=== PATIENT | female | born 1960 | race African-American/Black ===

== ENCOUNTER 2024-05-30 18:41 | Emergency (ER) | payer OTHER ==
[~2024-05-30] VITALS: Ht 172.7 cm; Wt 84.0 kg
[~2024-05-30 18:41] MED LIST: LORA-655; LORA10TA6 PO; [UNRECOGNIZED DRUG - OTHER]
--- NOTE | 2024-05-30 18:59 | ECG ---
[facility] Test Date: 2024-05-30 Test Time: 18:55:30 Pat Name: GAMALIEL SCHULTZ Department: er Room: Gender: F Hardwood Finisher: ana : 1960 Requested By: EMERGENCY EMERGENCY Order Number: [id number] Reading MD: Measurements Intervals [place] Rate: 115 P: 64 RI: 138 QRS: 44 QRSD: 97 T: 6 QT: 349 QTc: 483 Interpretive Statements Sinus tachycardia Please click the below link to view image of tracing.
[2024-05-30] MEDS: predniSONE 20 MG TAB PO ONE (19:13)
[2024-05-30] MEDS: IPRATROPIUM BROM 0.5 MG/2.5ML INH SOL HHN ONE (19:15)
[2024-05-30] MEDS: ALBUTEROL SULF 2.5 MG/0.5ML(0.5%) NEB SOLN HHN ONE (19:16)
[2024-05-30 19:38] LABS: COVID19 ANTIGEN SOFIA FIA NEGATIVE (NEGATIVE); Rapid Influenza A Negative (Negative); Rapid Influenza B Negative (Negative)
[2024-05-30 19:38] LABS: Basophils # (auto) 0 10 ^3/uL (0-0.2); Basophils % (auto) 0.4 % (0.0-2.0); Eosinophils # (auto) 0 10 ^3/uL (0-0.8); Eosinophils % (auto) 0.3 % (0.0-7.0); Hematocrit 36.6 % (36.0-46.0); Hemoglobin 12.1 g/dL (12.2-16.2); Lymphocytes # (auto) 0.9 10 ^3/uL (0.4-5.4); Lymphocytes % (auto) 17.8 % (10.0-50.0); Mean Corpuscular Hemoglobin 28.1 pg (28.0-32.0); Mean Corpuscular Hgb Conc. 32.9 g/dL (32.0-36.0); Mean Corpuscular Volume 85.3 fL (80.0-100.0); Monocytes # (auto) 0.4 10 ^3/uL (0-1.3); Monocytes % (auto) 8.6 % (0.0-12.0); Neutrophils # (auto) 3.6 10 ^3/uL (1.6-8.6); Neutrophils % (auto) 72.9 % (37.0-80.0); Nucleated Red Blood Cells % 0.2 %; Platelet Count (auto) 126 10^3/uL (140-450); Red Blood Cells 4.29 10^6/uL (4.0-5.20); Red Cell Distribution Width 14.8 % (11.8-14.3); White Blood Cell 4.9 10^3/uL (4.4-10.8)
--- NOTE | 2024-05-30 19:44 | DVH ---
CHEST RADIOGRAPH Indication: SOB Technique: Single frontal view of the chest was obtained COMPARISON: None FINDINGS: Lines and Tubes: None Lungs: Mild opacity noted at the left lung base consistent with subsegmental atelectasis/consolidatio n. Mild subsegmental atelectasis in right mid lung. Pleura: No effusion. No pneumothorax. Cardiomediastinal contours: Unremarkable IMPRESSION: Mild opacity at left lung base, may represent pneumonia.
[2024-05-30 19:57] LABS: Alanine Aminotransferase 28 U/L (7-40); Albumin 4.6 g/dL (3.2-4.8); Alkaline Phosphatase 113 U/L (46-116); Anion Gap 11 (5-15); BUN/Creatinine Ratio 12.5 (10.0-20.0); Blood Urea Nitrogen 18 mg/dL (9-23); Carbon Dioxide 25 mmol/L (20-31); Chloride 104 mmol/L (98-107); Potassium 3.6 mmol/L (3.5-5.1); Sodium 140 mmol/L (136-145)
[2024-05-30 19:58] LABS: Total Protein 6.9 g/dL (5.7-8.2)
[2024-05-30 19:59] LABS: Aspartate Aminotransferase < 8 U/L (13-40); Bilirubin, Total 0.3 mg/dL (0.2-1.0); Glucose 113 mg/dL (74-106)
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
[2024-05-30] MEDS ORDERED: AZIT500T66 PO (22:49)
[2024-05-30] MEDS ORDERED: PRED20TA2 PO (22:49)
[2024-05-30] MEDS ORDERED: ALBU108A5 IN (22:49)
[2024-05-30] MEDS ORDERED: ALBU0.084 NEB (22:49)
[2024-05-31 02:32] VITALS: BP 123/74; TEMP 98.4
[2024-05-31 02:46] VITALS: PULSE 85; RESP 16; O2SAT 97
== END 2024-05-31 02:47 | disposition home or self-care (01) ==
LOC: EDBD 18:41 → ER 18:41
DX: J45.901 Unspecified asthma with (acute) exacerbation (principal); J06.9 Acute upper respiratory infection, unspecified; I10 Essential (primary) hypertension; F17.210 Nicotine dependence, cigarettes, uncomplicated; Z86.2 Personal history of diseases of the blood and blood-forming organs and certain disorders involving the immune mechanism; Z90.710 Acquired absence of both cervix and uterus; Z98.890 Other specified postprocedural states; Z79.52 Long term (current) use of systemic steroids; Z79.899 Other long term (current) drug therapy; Z20.822 Contact with and (suspected) exposure to COVID-19
CPT/HCPCS: 36415; 36600; 71045; 80053; 82805; 83880; 84484; 85025; 87426; 87804; 93005; 94640; 99285; J7512